=== PATIENT | male | born 1950 | race Caucasian/White ===

== ENCOUNTER → 2017-06-27 | Outpatient (CLI) | payer MEDICARE | END | disposition home or self-care (01) | LOC: WOUND 14:19 | PROVIDERS: ATTEND Family Medicine | DX: L97.221 Non-pressure chronic ulcer of left calf limited to breakdown of skin (principal); S81.832A Puncture wound without foreign body, left lower leg, initial encounter; I10 Essential (primary) hypertension; K21.9 Gastro-esophageal reflux disease without esophagitis | CPT/HCPCS: 97597; G0463; WOU0463 ==

== ENCOUNTER → 2017-07-04 | Outpatient (CLI) | payer MEDICARE | END | disposition home or self-care (01) | LOC: WOUND 15:10 | PROVIDERS: ATTEND Nurse Practitioner Family | DX: L97.221 Non-pressure chronic ulcer of left calf limited to breakdown of skin (principal); I10 Essential (primary) hypertension; K21.9 Gastro-esophageal reflux disease without esophagitis | CPT/HCPCS: G0463; WOU0463 ==